=== PATIENT | male | born 1935 | race Caucasian/White ===

== ENCOUNTER 2021-12-28 08:17 | Outpatient (CLI) | payer MEDICARE, BC, SELFPAY ==
[2021-12-28 11:59] LABS: Chloride* 95 mmol/L (96-114)
[2021-12-28 12:00] LABS: Potassium* 5.2 mmol/L (3.6-5.1); Sodium* 131 mmol/L (135-149)
[2021-12-28 12:02] LABS: Carbon Dioxide* 22 mmol/L (20-32); Creatinine* 1.3 mg/dL (0.5-1.5); Estimated Glomerular Filt Rate 54 ml/min
[2021-12-28 12:03] LABS: Blood Urea Nitrogen* 36 mg/dL (7-30); Calcium* 9.9 mg/dL (8.4-10.6); Glucose* 102 mg/dL (60-115)
== END 2021-12-28 08:18 | disposition home or self-care (01) ==
LOC: NFLDREF 08:18
PROVIDERS: PCP Family Medicine; Visit Provider Family Medicine
DX: E87.1 Hypo-osmolality and hyponatremia (principal); E78.5 Hyperlipidemia, unspecified; I11.0 Hypertensive heart disease with heart failure; M81.0 Age-related osteoporosis without current pathological fracture
CPT/HCPCS: 80048

== ENCOUNTER 2022-03-01 16:01 | Outpatient (CLI) | payer MEDICARE, BC, SELFPAY ==
[2022-03-01 22:11] LABS: Chloride* 103 mmol/L (96-114); Sodium* 137 mmol/L (135-149)
[2022-03-01 22:12] LABS: Potassium* 3.9 mmol/L (3.6-5.1)
[2022-03-01 22:14] LABS: Carbon Dioxide* 23 mmol/L (20-32); Creatinine* 1.1 mg/dL (0.5-1.5); Estimated Glomerular Filt Rate 66 ml/min
[2022-03-01 22:15] LABS: Blood Urea Nitrogen* 18 mg/dL (7-30); Calcium* 9.7 mg/dL (8.4-10.6); Glucose* 102 mg/dL (60-115)
== END 2022-03-01 16:02 | disposition home or self-care (01) ==
PROVIDERS: PCP Family Medicine; Visit Provider Family Medicine
DX: I10 Essential (primary) hypertension (principal)
CPT/HCPCS: 80048

== ENCOUNTER 2022-05-24 09:21 | Outpatient (CLI) | payer MEDICARE, BC, SELFPAY ==
[2022-05-24 13:55] LABS: Chloride* 105 mmol/L (96-114); Sodium* 136 mmol/L (135-149)
[2022-05-24 13:56] LABS: Potassium* 4.8 mmol/L (3.6-5.1)
[2022-05-24 13:59] LABS: Blood Urea Nitrogen* 22 mg/dL (7-30); Calcium* 9.6 mg/dL (8.4-10.6); Carbon Dioxide* 24 mmol/L (20-32); Creatinine* 1.3 mg/dL (0.5-1.5); Estimated Glomerular Filt Rate 54 ml/min; Glucose* 100 mg/dL (60-115)
== END 2022-05-24 09:22 | disposition home or self-care (01) ==
LOC: FBOREF 09:22
PROVIDERS: PCP Family Medicine; Visit Provider Family Medicine
DX: I10 Essential (primary) hypertension (principal)
CPT/HCPCS: 80048

== ENCOUNTER 2023-05-30 10:58 | Outpatient (CLI) | payer MEDICARE, BC, SELFPAY | END 2023-05-30 10:59 | disposition home or self-care (01) | PROVIDERS: PCP Family Medicine; Visit Provider Family Medicine | DX: I10 Essential (primary) hypertension (principal); E87.1 Hypo-osmolality and hyponatremia; E78.2 Mixed hyperlipidemia; M81.0 Age-related osteoporosis without current pathological fracture; R53.83 Other fatigue; R56.9 Unspecified convulsions | CPT/HCPCS: 80048; 80061; 80177; 84460; 85025 ==

== ENCOUNTER 2023-10-03 08:07 | Outpatient (CLI) | payer MEDICARE, BC, SELFPAY | END 2023-10-03 08:08 | disposition home or self-care (01) | LOC: FBOREF 08:09 | PROVIDERS: PCP Family Medicine; Visit Provider Family Medicine | DX: G40.209 Localization-related (focal) (partial) symptomatic epilepsy and epileptic syndromes with complex partial seizures, not intractable, without status epilepticus (principal); Z79.899 Other long term (current) drug therapy; Z51.81 Encounter for therapeutic drug level monitoring | CPT/HCPCS: 80177 ==

== ENCOUNTER 2024-08-27 10:59 | Outpatient (CLI) | payer MEDICARE, BC, SELFPAY | END 2024-08-27 11:00 | disposition home or self-care (01) | PROVIDERS: PCP Family Medicine; Visit Provider Family Medicine | DX: E78.2 Mixed hyperlipidemia (principal); I10 Essential (primary) hypertension; G40.209 Localization-related (focal) (partial) symptomatic epilepsy and epileptic syndromes with complex partial seizures, not intractable, without status epilepticus; Z79.811 Long term (current) use of aromatase inhibitors; Z51.81 Encounter for therapeutic drug level monitoring | CPT/HCPCS: 80048; 80061; 80177; 84460 ==